=== PATIENT | male | born 1980 | race African-American/Black ===

== ENCOUNTER 2024-11-06 08:56 | Day surgery (SDC) | payer OTHER, SELFPAY ==
[2024-10-29 08:41] VITALS: BMI 31.1
[2024-11-06] VITALS (17 sets, daily range): BP systolic 130–167; BP diastolic 98–116; PULSE 88–133; RESP 10–20; TEMP 36–36.7; O2SAT 17–99; BMI 31.1
--- NOTE | 2024-11-06 | DI.RAD.S_ITS ---
PROCEDURE: [id number] W PEL IF PERFORMED INDICATIONS: TOTAL LEFT HIP ARTHROPLASTY TECHNIQUE: AP pelvis with lateral view(s) of the left hip(s). COMPARISON: [facility], CR, XR HIP W PEL IF DONE LT 2V, 11/06/2024, 14:39. [facility], CR, XR PELVIS WITH LATERAL HIP LEFT, 08/15/2024, 14:15. FINDINGS: Intraoperative left hip arthroplasty. Hardware appears intact with good anatomic alignment. IMPRESSION: Intraoperative left hip arthroplasty. Dictated by: Avril Avila M.D. on 11/06/2024 at 16:46 Approved by: Avril Avila M.D. on 11/06/2024 at 16:47
--- NOTE | 2024-11-06 06:00 | DI.RAD.S_ITS ---
PROCEDURE: XR HIP W PEL IF DONE LT 2V INDICATIONS: ROYA TECHNIQUE: AP pelvis and lateral view of the hip acquired. COMPARISON: [facility], CR, [id number] W PEL IF PERFORMED, 11/06/2024, 12:44. FINDINGS: Bones: Patient is status post left hip arthroplasty, with hardware components in expected positions. The hip joint appears congruent. The visualized bony structures appear intact. Soft tissues: Overlying postoperative changes are noted. No suspicious soft tissue densities. IMPRESSION: Expected post-operative appearance of a hip arthroplasty. Dictated by: Pete Cifuentes M.D. on 11/06/2024 at 20:23 Approved by: Pete Cifuentes M.D. on 11/06/2024 at 20:23
[2024-11-06] MEDS: LACTATED RINGERS 1,000 ML 42 ML IV ×3 (09:20→13:58)
[2024-11-06] MEDS: ACETAMINOPHEN 325 MG TABLET 975 MG PO (09:20)
[2024-11-06] MEDS: CELECOXIB 200 MG CAPSULE PO (09:21)
[2024-11-06] MEDS: VANCOMYCIN 1,000 MG/200 ML PIGGYBACK 200 MG IV (09:47)
--- NOTE | 2024-11-06 10:24 | PM.PREOP ---
Pre-operative Note Interval Note History & Physical reviewed/Exam performed by Physician: Yes Changes to H&P: No
--- NOTE | 2024-11-06 10:25 | P.OP_ITS ---
Operative Date/Time/Diagnoses Date of procedure: 11/06/24 Time of procedure: 11:10 Pre-op diagnosis: Left hip OA, AVN Post-op diagnosis: same Procedure & Clinicians Procedure: Left total hip arthroplasty anterior approach Same procedure as scheduled: Yes Indications: The patient has had progressively worsening left hip pain with radiographic changes consistent with arthritis. Non-operative management has failed and the patient has requested total hip replacement. The risks, benefits and alternatives to surgery were discussed with the patient prior to proceeding. Risks discussed included, but were not limited to, failure to relieve pain, leg length discrepancy, dislocation, stiffness, infection, nerve damage, deep venous thrombosis, pulmonary embolism, stroke, coma, heart attack, permanent paralysis and , as well as the potential need for eventual revision of the prosthetic. Surgeon: Maddy Scott Harbor Pilot: Kim Avila Anesthesia Type: General and Spinal Operative Notes Findings: Severe left hip OA, hard bone Closure Type: primary Specimen(s): none sent Prosthetic devices, grafts, tissues, transplants, or devices: Scott and nephew 56 R3, +4 liner, anthology a size 6 high offset, 36 by-3 Oxinium head,two 6.5 mm screws Estimated Blood Loss (mL): 250 Blood products transfused: none Procedure in detail: The patient was brought to the operating room. Patient was carefully positioned in the supine position. Time-out was performed and antibiotics were given. Anesthesia was induced. He was positioned in the on the table in order to allow hyperextension of the hip. The left lower extremity was prepped and draped in a standard sterile fashion. An anterior left hip incision was made 1 fingerbreadth lateral to the anterior superior iliac spine and extended distally towards the greater trochanter. Dissection was carried out through skin and subcutaneous tissue. Superficial hemostasis was achieved. The fascia over the tensor fascia artur was defined and incised with a knife. Two Allis clamps were used to grasp the fascia. Tensor fascia artur was retracted laterally. A gelpi retractor was placed. Dissection was carried out down along the neck. The circumflex vessels were carefully identified and cauterized with the Aqua Mantis. A PA was used during the procedure and was essential for intraoperative retraction and safe implantation of the components. There was good visualization of the femoral neck. A Cobra was placed superior to the neck and the gluteus fibers were carefully stripped from that superior aspect of the capsule. A 2nd retractor was placed along the inferior aspect of the neck. The rectus insertion along the capsule was partially released. A 3rd retractor that was then gently placed over the rim of the acetabulum under the rectus. Capsule was carefully incised and released from the intertrochanteric line circumferentially superior to the mid sagittal line and inferiorly to the mid sagittal line until the lesser trochanter was palpable. A tag stitch was placed both in the superior and inferior limb of the capsular insertion. Along the acetabulum capsule was also released up to the mid sagittal 12:00 position. A portion of the labrum was resected. A saw was used to perform an osteotomy at the level of the intertrochanteric line and the junction of the superior femoral neck leaving approximately 1 finger breath of residual inferior neck above the lesser trochanter. A 2nd cut was made along the femoral neck at the base of the head and a napkin ring of neck was removed. Corkscrew was placed in the femoral head and the head was removed without difficulty. Retractors were then repositioned around the acetabulum. Residual labrum was resected and additional osteophytes were removed. A reamer that was 4 mm below the templated size was placed by hand in the acetabulum and it was reamed to centralize the acetabulum. It was then reamed up to 2 under the templated size and fluoroscopy was brought in to confirm the position of the reaming and depth of reaming. I reamed 1 under the anticipated size. A trial cup was placed and noted that it was appropriately sized and fluoroscopy confirmed position and depth. The component was open and inserted without difficulty fluoroscopic imaging was used to confirm that the cup had been adequately seated and was well positioned. It was further stabilized with two screws. Lateralized +4 poly liner was placed. The cup was tested and noted to be stable. Attention was then directed to the femur. The femur was gently hyperextended additional capsular release was performed as needed in order to allow adequate visualization of the proximal femur with elevation of the femur. Patient was placed in a hyperextended slightly adducted position with maximum external rotation. Box osteotome was used to check for any residual neck as well as sclerotic bone along the trochanter. Derby pepper was placed in the femur. Additional broaching was performed. Canal finder was used to determine the alignment of the canal and position. Size 1 broach was placed. The canal was then appropriately broached up to the templated size as long as there was adequate stability of the broach and serial advancement of the broach without excessive impingement. Specific attention was directed at avoiding varus attempting to direct the distal aspect of the broach more anteriorly and avoiding excessive anteversion. Trial reduction showed acceptable range of motion, good stability, no posterior impingement, scientology of leg length and appropriate lateral shuck. I also hyperflexed the hip and checked that there was no impingement anteriorly and there was good stability with flexion, adduction and internal rotation. Marcaine and Exparel 266 mg were injected. The stem was placed without di fficulty. Repeat trial reduction and x-ray showed acceptable overall position, length, and no evidence of the femoral fracture. Final head was placed. Wound was meticulously irrigated with normal saline. The hip was reduced and additional Exparel and Marcaine were injected. The capsule was closed with interrupted nonabsorbable sutures. The fascia of the tensor was closed with interrupted and running Vicryl. No drain was placed. Any tensor fascia artur muscle that appeared to be contused or injured which was a minimal amount was carefully resected. Capsule around the tensor was injected with Exparel and Marcaine. The skin was closed with barbed stitches for the subcutaneous tissue and skin. We also used surgical glue. The wound was dressed sterilely. Brief Betadine soak was also used and was meticulously irrigated with normal saline. Patient was transferred to recovery room in satisfactory condition. Complications: none Post-operative Condition: stable Disposition: Acute Care Plan for aftercare: The patient will be maintained on a standard total hip replacement protocol with weight bearing as tolerated and anterior hip precautions. The patient will receive Aspirin and sequential compression devices for DVT prophylaxis. The patient will be discharged home when safe for the home environment.
[2024-11-06] MEDS: BUPIVACAINE 0.5% W/ EPI (PF) 30 ML VIAL 60 ML INJ (11:49)
[2024-11-06] MEDS: BUPIVACAINE LIPOSOME 266 MG/20 ML VIAL INJ (11:50)
--- NOTE | 2024-11-06 11:53 | SUR.OPER ---
HANA TABLE, LEFT ARM PLACED ACROSS CHEST ON FOAM PAD WITH GEL PAD PLACED ON TOP OF ARM, SECURED WITH TAPE
[2024-11-06] MEDS: CEFAZOLIN 2 GM/100 ML PREMIX 100 ML IV ×2 (12:02→20:16)
[2024-11-06] MEDS: TRANEXAMIC ACID 1,000 MG VIAL 1000 MG INJ (12:02)
[2024-11-06] MEDS: HYDROMORPHONE 1 MG INJ IV (14:53)
[2024-11-06] MEDS: hydrOXYzine 50 MG/ML INJ 25 MG IM (14:57)
[2024-11-06] MEDS: OXYCODONE IR 5 MG TABLET PO ×2 (15:06→16:43)
--- NOTE | 2024-11-06 15:14 | SUR.PHASEI ---
Report called to Gayle.
--- NOTE | 2024-11-06 15:19 | SUR.PHASEI ---
Patient transferred to the floor by Bryan, with belongings bag.
[2024-11-06] MEDS: LACTATED RINGERS 1,000 ML 100 ML IV (15:43)
--- NOTE | 2024-11-06 16:32 | PT.IIE ---
Current Diagnoses Unilateral primary osteoarthritis, left hip (11/06/24) Surgery Performed Operation Date: 11/06/24 10:45 Actual Procedures p Total Hip Arthroplasty/Anterior Approach(Left) - Maddy Scott MD Surgical History (Last Updated 10/29/24 @ 10:08 by Mary Flores RN) S/P cervical spinal fusion (02/2023) S/P thyroid biopsy (03/2023) Medical History (Last Updated 10/29/24 @ 10:24 by Mary Flores RN) History of COVID-19 (~2021) HTN (hypertension) RENAY (obstructive sleep apnea) Osteoarthritis Physical Therapy Inpatient Evaluation/Re-Eval M1 PT/OT-IP Prior Functional Status Start: 11/06/24 18:13 Freq: NEEDED Status: Active Protocol: Document 11/06/24 16:32 AB (Rec: 11/06/24 18:25 AB [id number]) Medical Review Prior Functional Status Medical History Reviewed Yes Communication able to make needs known Mobility and Gait pt stated that he was independent with alll mobilities and ambulation without AD Social History Household Members spouse,children Living Arrangements House Number of Floors (Floors) Two Floors Number of Stairs To Enter/Railing? 1 step to enter the house 2 flights of steps R rail + L ledge to get to bedroom level Home Environment Standard Height Toilet,Tub/ Shower Home Equipment Front Wheel Walker,Grab Bars In Shower Employment Status Active Duty M2 PT-IP Current Condition Start: 11/06/24 18:13 Freq: NEEDED Status: Active Protocol: Document 11/06/24 16:32 AB (Rec: 11/06/24 18:25 AB [id number]) Physical Therapy Current Condition Current Condition Evaluation Date 11/06/24 Treatment Diagnosis s/p L ROYA anterior; difficulty in walking Onset Date 11/06/24 M3 PT-IP Subjective Start: 11/06/24 18:13 Freq: NEEDED Status: Active Protocol: Document 11/06/24 16:32 AB (Rec: 11/06/24 18:25 AB [id number]) Subjective Physical Therapy Visit Type Type Initial Evaluation Visit Start Time 16:32 Visit Stop Time 18:00 Number of [employer] REPAIRER Visits 0 Physical Therapy Visit Comments Patient Comments agreeable to do PT Therapy Pain Assessment Pain When Pain Assessed At Rest Pain Present Pain Present Pain Reported Location left hip Intensity 5 Scale Used Numeric (0 - 10) Pain Behaviors Guarding Pain Management Techniques Apply Cold,Modification of Treatment,Re-positioning, Timing of Activity with Medications M4 PT-IP Mobility and Gait Start: 11/06/24 18:13 Freq: NEEDED Status: Active Protocol: Document 11/06/24 16:32 AB (Rec: 11/06/24 18:25 AB [id number]) PT-Bed Mobility Assessment Supine to Sit Supine to Sit Standby Assistance PT-Transfer Assessment Sit to and From Stand Sit to and from Stand Contact Guard Assistance,1 Person Assistance,Use of Upper Extremities Equipment Transfer Assistive Device Gait Belt,Front Wheeled Walker Orthotic/Prosthetic Devices or Brace: No Transfers Transfer Destination Chair Transfer Technique Stand Step Pivot Transfer Ability Level of Assist Contact Guard Assistance, Minimal Assistance,1 Person Assistance,2 Person Assistance Comments Mobility Comments pt supine in bed. spouse in room. obtained PLOF and home set up. BP checked: 155/117. nurse informed and provided pt with BP medication. post-op folder provided and educated pt regarding anterior L hip precautions. pt wanting to go home today. BP rechecked: 133/90. pt completed supine to sit SBA. able to sit on EOb SBA. completed sit to stand CGA tomin A and ambulated to the chair with inital min A and cues for steadiness and able to walk CGA after a few feet with just occasional min A. pt sat on the chair. BP rechecked: 138/101. caregiver training conducted. educated spouse on how to use belt and how to assist pt. spouse was able to put safety belt on pt . spouse assisted pt with sit to stand and ambulated in room using FWW CGA to min A. pt sat back on chair. pt stated that he wants to go home and agreed to do stairs. spouse assisted pt with sit to stand from chair CGA to min A and pt ambulated in the hallway ~ 75 ft using FWW with spouse assisting CGA to min A . stair climbing training. educated pt and spouse on how to do stairs. pt completed up/ down platform step using FWW CGA to min A and cues. initially with PT providing cues. pt repeated again and spouse was able to assist and cue pt. pt completed up/down steps using B rail CGA with spouse assisting. assisted pt back to his room. pt ambulated from w/c to chair using FWW CGA. positioned pt on the chair. call light and table placed within reach. pt and spouse without further concerns. Gait Assessment Gait Gait Assistance Required: Contact Guard Assist,Minimum Assistance Distance (Feet) 75 Able to Maintain Weight Bearing Status Yes During Gait Assistive Devices Assistive Device Gait Belt,Front Wheeled Walker Orthotic/Prosthetic Devices or Brace: No Gait Deviations General Gait Pattern Antalgic Factors Limiting Gait Function Factors Limiting Gait Function Decreased Activity Tolerance, Decreased Strength,Limited Range of Motion,Pain,Poor Balance,Poor Safety Awareness Stair Climbing Assessment Evaluation Level of Assist On Stairs Contact Guard Assistance, Minimal Assistance Devices Stair Climbing Assistive Devices Front Wheel Walker Technique/Endurance Stair Climbing Direction Ascend and Descend Stair Climbing Technique Step to Step PT-Balance Assessment Sitting Balance and Reactions Static Sitting Balance Ability Normal Dynamic Sitting Balance Ability Good Standing Balance and Reactions Static Standing Balance Ability Fair Dynamic Standing Balance Ability Fair Device Used FWW M5 PT-IP Objective Assessments Start: 11/06/24 18:13 Freq: NEEDED Status: Active Protocol: Document 11/06/24 16:32 AB (Rec: 11/06/24 18:25 AB [id number]) Orientation Orientation/Cognition Level of Alertness Alert Orientation Name,Place,Situation Language Function Ability No Deficits Noted Safety Awareness Decreased Safety Awareness Memory Description Short Term Impaired Gross Range of Motion Lower Extremity ROM Assessment Within Functional Limits Strength Lower Extremity Strength Assessment Left Impaired Hip 3-/5 Knee 4-/5 Coordination Assessment Gross Coordination Gross Coordination WNL Muscle Tone Muscle Tone WNL Yes M6 PT-IP Treatment Start: 11/06/24 18:13 Freq: NEEDED Status: Active Protocol: Document 11/06/24 16:32 AB (Rec: 11/06/24 18:25 AB [id number]) Physical Therapy Treatment Exercises Exercises Heel Slides Education Education Provided Precautions,Weight Bearing Status,Post-Op Packet,Safety M7 PT-IP Assessment and Plan Start: 11/06/24 18:13 Freq: NEEDED Status: Active Protocol: Document 11/06/24 16:32 AB (Rec: 11/06/24 18:25 AB [id number]) PT Summary Assessment and Plan Potential Rehabilitation Potential Fair Status of Condition at Evaluation Evolving Summary Impairments Pain,ROM,Strength,Balance, Coordination,Sensation,Tone, Cognition,Bed Mobility, Transfers,Gait,Activity Tolerance Assessment Summary pt is a 44 y/o M s/p L ROYA anterior approach POD 0. pt with L hip anterior precautions and is wBAT. pt requiring CGA to min A with mobilities using FWW. caregiver training conducted and spouse was able to assist pt. pt wants to go home tonight. Goals Bed Mobility Goal Independent Transfer Goal Independent,Front Wheeled Walker Gait Goal Independent,Front Wheel Walker Gait Distance 200 Other Goals up/down 1 step using FWW SBA up/down 2 flights of steps B rails SBA Days to Meet Goals 5 Frequency of Treatment Frequency Of Treatment Twice a Day Treatment Plan Physical Therapy Treatment Plan Bed Mobility Training,Transfer Training,Gait Training, Therapeutic Exercise,Balance Retraining,Post Op Education, Discharge Planning,Hot or Cold Pack,Neuromuscular Re-ed, Coordination Retraining,Manual Therapy Precautions Anterior Hip Precautions No Hip Extension,No Hip External Rotation Weight Bearing Status Weight Bearing Status Weight Bear as Tolerated Allowed Weight Bearing Amount (enter % LLE WBAT or #) (%) Recommendations To Nursing Amount of Assist Needed 1 Person Assist Discharge Recommendations PT Discharge Recommendations Home with Assistance, Outpatient PT Transportation Needs at Discharge Private Vehicle
[2024-11-06] MEDS: lisinopriL 20 MG TABLET PO (16:55)
[2024-11-06] MEDS: diazePAM 5 MG TABLET PO (18:45)
[2024-11-06] MEDS: ASPIRIN EC 81 MG TABLET PO (20:16)
[2024-11-06] MEDS: DOCUSATE 100 MG CAPSULE PO (20:16)
[2024-11-07] VITALS: BP 140/99; PULSE 115; RESP 18; TEMP 36.5; O2SAT 99
[2024-11-07] MEDS: CEFAZOLIN 2 GM/100 ML PREMIX 100 ML IV (04:12)
[2024-11-07] MEDS: IBUPROFEN 400 MG TABLET PO (04:20)
[2024-11-07] MEDS: diazePAM 5 MG TABLET PO (04:20)
[2024-11-07 04:50] VITALS: BP 136/99; PULSE 102; RESP 18; TEMP 36.3; O2SAT 99
[2024-11-07] MEDS: OXYCODONE IR 5 MG TABLET PO (05:08)
[2024-11-07 06:07] LABS: Hematocrit 37.1 % (41-53); Hemoglobin 12.5 g/dL (13.5-17.5)
--- NOTE | 2024-11-07 06:23 | P.DS_ITS ---
History of Present Illness History of Present Illness Date Patient Seen: 11/07/24 Time Patient Seen: 06:23 Chief complaint: Left ROYA Anterior Narrative: Operative Date/Time/Diagnoses Date of procedure: 11/06/24 Time of procedure: 11:10 Pre-op diagnosis: Left hip OA, AVN Post-op diagnosis: same Procedure & Clinicians Procedure: Left total hip arthroplasty anterior approach Same procedure as scheduled: Yes Indications: The patient has had progressively worsening left hip pain with radiographic changes consistent with arthritis. Non-operative management has failed and the patient has requested total hip replacement. The risks, benefits and alternatives to surgery were discussed with the patient prior to proceeding. Risks discussed included, but were not limited to, failure to relieve pain, leg length discrepancy, dislocation, stiffness, infection, nerve damage, deep venous thrombosis, pulmonary embolism, stroke, coma, heart attack, permanent paralysis and , as well as the potential need for eventual revision of the prosthetic. Surgeon: Maddy Scott Sustainability Specialist: Kim Avila Anesthesia Type: General and Spinal Operative Notes Findings: Severe left hip OA, hard bone Closure Type: primary Specimen(s): none sent Prosthetic devices, grafts, tissues, transplants, or devices: Scott and nephew 56 R3, +4 liner, anthology a size 6 high offset, 36 by-3 Oxinium head,two 6.5 mm screws Estimated Blood Loss (mL): 250 Blood products transfused: none Discharge Providers Provider Discharge Date: 11/07/24 Primary care physician: PENNY Villa Consults: 11/06/24 06:00 Consult to Anesthesiology Routine Comment: Consulting Provider: Anesthesiologist Reason for consultation: Regional block for post operative pain control Has provider been notified: No 11/06/24 15:20 Consult to Discharge Planning Routine Comment: Consult to Occupational Therapy Evaluate & Treat Comment: Physician Instructions: Evaluate and treat Consult to Physical Therapy Evaluate & Treat Comment: Physician Instructions: post op ROYA protocol Discharge provider: Sheyla Florez PA-C Summary Hospital Course Discharge Diagnosis: Left hip osteoarthritis, avascular necrosis; s/p left total hip arthroplasty Hospital Course: Mr Nolasco's hospital course was unremarkable. On the morning of POD# 1, he was feeling well and wanted to go home. He was eating and voiding without difficulty and his pain was well-controlled with oral medication. He was evaluated by PT following surgery and they felt he was appropriate for discharge; he would like to work with them again prior to discharge. Exam Vital Signs (past 8 hours): - 11/07/24 00:00 11/07/24 04:50 Temperature 97.7 F 97.4 F L Pulse Rate 115 H 102 H Respiratory Rate 18 18 Blood Pressure 140/99 H 136/99 H Pulse Oximetry 99 99 Oxygen Delivery Method Room Air Oxygen Flow Rate 0 Narrative Exam Narrative: 5/5 strength in hip flexors, quadriceps, hamstrings, PF, DF, EHL on left. Sensation to light touch intact throughout LLE. Calf soft and compressible. Aquacel dressing CDI. ID > 100, but in review of office notes, this is baseline for him. Objective Labs 11/07/24 05:33 Labs: Laboratory Results - last 24 hr 11/07/24 05:33 Hgb 12.5 L Hct 37.1 L PFSH Medical History (Updated 10/29/24 @ 10:24 by Mary Flores RN) History of COVID-19 (~2021) Osteoarthritis HTN (hypertension) RENAY (obstructive sleep apnea) Surgical History (Updated 10/29/24 @ 10:08 by Mary Flores RN) S/P thyroid biopsy (03/2023) S/P cervical spinal fusion (02/2023) Social History household members: spouse and children Smoking Status: Current every day smoker alcohol intake: current Discharge Assessment & Plan Assessment and Plan Assessment: Left hip osteoarthritis, avascular necrosis; s/p left total hip arthroplasty Plan of Treatment: Discharge home after morning PT. Pt has postop meds at home. F/u in office as scheduled, outpt PT. Discharge Plan Discharge Plan Patient Disposition: Home Discharge orders & Medications Discharge Orders: Discharge (Order); Ordered 11/07/24 Ordered By: Sheyla Florez Prescriptions: Continued lisinopril 20 mg Tablet 20 mg PO QAM sildenafil 100 mg tablet 100 mg PO diazepam 5 mg tablet 5 mg PO BID PRN (Reason: Anxiety) Follow up/Referrals: Shamar Rosado ARNP [Primary Care Provider] - Maddy Scott MD [Physician] - 11/16/24 11:30 am (Follow up w/ Neymar Nunes PA-C, at [address] office in [place].) Diet/Activity/Treatments Diet: Diet as Tolerated Activity: Weightbearing as tolerated. Anterior hip precautions. Cold/Heat Therapy: Ice to hip as needed for pain. Skin/Wound/Dressing Care Report to your healthcare provider any signs of infection, such as:: chills, fever, night sweats, unusual drainage and unusual redness Dressing: May shower. Leave dressing in place until follow up in office. No bathing or otherwise soaking incision. Call the office if the dressing becomes saturated inside. Visit Report/Discharge Packet Instructions: DI for Hip Replacement, DI for Prescription Opioid Use Stand Alone Forms: Patient Portal/API, Surgery Discharge Discharge Data Primary Care Provider: Shamar Rosado Attending Provider: Maddy Scott VTE Deep Vein Thrombosis/Pulmonary Embolism Present on Admission: No
[2024-11-07] MEDS: ACETAMINOPHEN 325 MG TABLET 650 MG PO (07:47)
[2024-11-07 08:00] VITALS: BP 130/85; PULSE 86; RESP 16; TEMP 36.3; O2SAT 99
--- NOTE | 2024-11-07 08:03 | PT.IPTN ---
Current Diagnoses Unilateral primary osteoarthritis, left hip (11/06/24) Surgery Performed Operation Date: 11/06/24 10:45 Actual Procedures p Total Hip Arthroplasty/Anterior Approach(Left) - Maddy Scott MD Physical Therapy Treatment Note M2 PT-IP Current Condition Start: 11/06/24 18:13 Freq: NEEDED Status: Active Protocol: Document 11/07/24 07:42 SP (Rec: 11/07/24 08:21 SP [id number]) Physical Therapy Current Condition Current Condition Evaluation Date 11/06/24 Treatment Diagnosis s/p L ROYA anterior; difficulty in walking Onset Date 11/06/24 M3 PT-IP Subjective Start: 11/06/24 18:13 Freq: NEEDED Status: Active Protocol: Document 11/07/24 07:42 SP (Rec: 11/07/24 08:21 SP [id number]) Subjective Physical Therapy Visit Type Type Treatment Note Visit Start Time 07:42 Visit Stop Time 08:03 Number of INSTRUMENT INSTALLER Visits 1 Physical Therapy Visit Comments Patient Comments agreeable to do PT Patient Goals return home with and set up with outpt PT in [facility] Pain Assessment Location left hip Intensity 3 Scale Used Numeric (0 - 10) Pain Management Techniques Apply Cold,Modification of Treatment,Re-positioning, Timing of Activity with Medications M4 PT-IP Mobility and Gait Start: 11/06/24 18:13 Freq: NEEDED Status: Active Protocol: Document 11/07/24 07:42 SP (Rec: 11/07/24 08:21 SP [id number]) PT-Bed Mobility Assessment Supine to Sit Supine to Sit Independent Scooting Scooting to Edge of Bed Independent PT-Transfer Assessment Sit to and From Stand Sit to and from Stand Standby Assistance,Use of Upper Extremities Equipment Transfer Assistive Device Gait Belt,Front Wheeled Walker Orthotic/Prosthetic Devices or Brace: No Transfers Transfer Destination Chair Transfer Technique Pt ambulated /c FWW Transfer Ability Level of Assist Standby Assistance,Use of Upper Extremities Comments Mobility Comments INSTRUMENT INSTALLER instructed pt with post op ex 5 reps each, showed with pt demonstrated use gait belt looped on L foot for heel slide support cued not >90deg hip flexion. Completed HOB flat sup>sit and scoot to EOB use gait belt support on LLE, SBA/Mod I. STS SBA /c FWW. Gait to hallway stairs and back approx 160 ft cues for not large step with RLE leaving left behind. Completed 3 sets 4 stair mgt BHR mgt sBA, cues for L knee bend ascending normal phase. Cues for L knee flexion during swing phase for normalizing gait. Pt demonstrates not significant BUE WB on FWW needed. Pt was sup in chair with all needs in reach including call light. Gait Assessment Gait Gait Assistance Required: Standby Assistance Distance (Feet) 150 Able to Maintain Weight Bearing Status Yes During Gait Assistive Devices Assistive Device Gait Belt,Front Wheeled Walker Orthotic/Prosthetic Devices or Brace: No Gait Deviations General Gait Pattern Antalgic Factors Limiting Gait Function Factors Limiting Gait Function Decreased Activity Tolerance, Decreased Strength,Limited Range of Motion,Pain Comments Gait Comments see mobility comments Stair Climbing Assessment Evaluation Level of Assist On Stairs Standby Assistance Devices Stair Climbing Assistive Devices Left Railing,Right Railing Technique/Endurance Stair Climbing Direction Ascend and Descend Stair Climbing Technique Step to Step Number of Steps Climbed 3 Stair Climbing Set # Repetitions (reps) 3 Comments Stair Climbing Comments Good proper sequencing post 1 verbal review. Cued L knee flexion ascending and reduction hip hike. PT-Balance Assessment Sitting Balance and Reactions Static Sitting Balance Ability Normal Dynamic Sitting Balance Ability Normal Standing Balance and Reactions Static Standing Balance Ability Good Dynamic Standing Balance Ability Good Device Used FWW M5 PT-IP Objective Assessments Start: 11/06/24 18:13 Freq: NEEDED Status: Active Protocol: Document 11/06/24 16:32 AB (Rec: 11/06/24 18:25 AB [id number]) Orientation Orientation/Cognition Level of Alertness Alert Orientation Name,Place,Situation Language Function Ability No Deficits Noted Safety Awareness Decreased Safety Awareness Memory Description Short Term Impaired Gross Range of Motion Lower Extremity ROM Assessment Within Functional Limits Strength Lower Extremity Strength Assessment Left Impaired Hip 3-/5 Knee 4-/5 Coordination Assessment Gross Coordination Gross Coordination WNL Muscle Tone Muscle Tone WNL Yes M6 PT-IP Treatment Start: 11/06/24 18:13 Freq: NEEDED Status: Active Protocol: Document 11/07/24 07:42 SP (Rec: 11/07/24 08:21 SP [id number]) Physical Therapy Treatment Exercises Exercises Ankle Pumps,Gluteal Sets,Quad Sets,Heel Slides Education Education Provided Precautions,Weight Bearing Status,Post-Op Packet,Safety M7 PT-IP Assessment and Plan Start: 11/06/24 18:13 Freq: NEEDED Status: Active Protocol: Document 11/07/24 07:42 SP (Rec: 11/07/24 08:21 SP [id number]) PT Summary Assessment and Plan Potential Rehabilitation Potential Fair Status of Condition at Evaluation Evolving Summary Impairments Pain,ROM,Strength,Balance, Coordination,Sensation,Tone, Cognition,Bed Mobility, Transfers,Gait,Activity Tolerance Progress Towards Goals Progressing Toward Goals,Slow Progress due to Pain Assessment Summary Pt Mod I with gait belt support LLE bed mob, sBA /c FWW rest of standing mobility aprpox 150 ft in hallway, 9 stairs B HR step to patterning . Pt ok to return home with when medically cleared and already set up with outpt PT. Goals Bed Mobility Goal Independent Transfer Goal Independent,Front Wheeled Walker Gait Goal Independent,Front Wheel Walker Gait Distance 200 Other Goals up/down 1 step using FWW SBA up/down 2 flights of steps B rails SBA Days to Meet Goals 5 Frequency of Treatment Frequency Of Treatment Twice a Day Treatment Plan Physical Therapy Treatment Plan Bed Mobility Training,Transfer Training,Gait Training, Therapeutic Exercise,Balance Retraining,Post Op Education, Discharge Planning,Hot or Cold Pack,Neuromuscular Re-ed, Coordination Retraining,Manual Therapy Other Recommendations and Next Treatment Further distance gait LRAD Focus when ready. Post op ex. Precautions Anterior Hip Precautions No Hip Extension,No Hip External Rotation Weight Bearing Status Weight Bearing Status Weight Bear as Tolerated Allowed Weight Bearing Amount (enter % LLE WBAT or #) (%) Recommendations To Nursing Amount of Assist Needed Standby Assistance Discharge Recommendations PT Discharge Recommendations Home with Assistance, Outpatient PT Transportation Needs at Discharge Private Vehicle
[2024-11-07 08:40] VITALS: BP 130/85
[2024-11-07] MEDS: ASPIRIN EC 81 MG TABLET PO (08:40)
[2024-11-07] MEDS: DOCUSATE 100 MG CAPSULE PO (08:40)
[2024-11-07] MEDS: lisinopriL 20 MG TABLET PO (08:40)
--- NOTE | 2024-11-07 09:20 | OT.IP.EVAL ---
Current Diagnoses Unilateral primary osteoarthritis, left hip (11/06/24) Surgery Performed Operation Date: 11/06/24 10:45 Actual Procedures p Total Hip Arthroplasty/Anterior Approach(Left) - Maddy Scott MD Past Medical History (Last Updated 10/29/24 @ 10:24 by Mary Flores, RN) History of COVID-19 (~2021) HTN (hypertension) RENAY (obstructive sleep apnea) Osteoarthritis Surgical History (Last Updated 10/29/24 @ 10:08 by Mary Flores RN) S/P cervical spinal fusion (02/2023) S/P thyroid biopsy (03/2023) Occupational Therapy Inpatient Evaluation/Re-Eval M1 PT/OT-IP Prior Functional Status Start: 11/06/24 18:13 Freq: NEEDED Status: Active Protocol: Document 11/07/24 09:11 [facility] (Rec: 11/07/24 09:21 [facility] [id number]) Medical Review Prior Functional Status Medical History Reviewed Yes Communication able to make needs known Mobility and Gait pt stated that he was independent with all mobilities and ambulation without AD Activities of Daily Living and IADL's Had to sit for dressing needs and had pain for needs. Social History Household Members spouse,children Living Arrangements House Number of Floors (Floors) Two Floors Number of Stairs To Enter/Railing? 1 step to enter the house 2 flights of steps R rail + L ledge to get to bedroom level Home Environment Standard Height Toilet,Tub/ Shower Home Equipment Front Wheel Walker,Grab Bars In Shower Employment Status Active Duty M2 OT-IP Current Condition Start: 11/07/24 09:10 Freq: Status: Active Protocol: Document 11/07/24 09:11 [facility] (Rec: 11/07/24 09:21 [facility] [id number]) Occupational Therapy Current Condition Current Condition Evaluation Date 11/07/24 Treatment Diagnosis S/P L ROYA Anterior Diagnosis Onset Date 11/06/24 M3 OT- IP Subjective and Pain Start: 11/07/24 09:10 Freq: Status: Active Protocol: Document 11/07/24 09:11 [facility] (Rec: 11/07/24 09:21 [facility] [id number]) OT- Subjective Occupational Therapy Visit Type Type Initial Evaluation Visit Start Time 08:35 Visit Stop Time 09:10 Occupational Therapy Visit Comments Patient Comments Pt agreed to get up and get dressed. Patient/Caregiver Goals TO go home. OT Pain Assessment Pain When Pain Assessed At Rest Pain Present Pain Present Pain Reported Location left hip Intensity 4 Scale Used Numeric (0 - 10) M4 OT- IP ADL's Start: 11/07/24 09:10 Freq: Status: Active Protocol: Document 11/07/24 09:11 [facility] (Rec: 11/07/24 09:21 [facility] [id number]) OT [id number] General Evaluation Self-Feeding Ability Independent OT ADL-Grooming General Evaluation Grooming Ability Independent OT ADL-Oral Care General Eval Oral Care Ability Independent OT ADL-Dressing General Eval Upper Body Dressing Ability Minimal Assistance Lower Body Dressing Ability Minimal Assistance Comments OT Dressing Comments Assist to help thread sleeve over the IV, assist to help get pants over RLE. Encouraged pt to sit to get dressed as pt tends to want to stand at this time. Pt states to get LB dressing equipment. Able to practice use of LB dressing equipment. OT ADL-Toileting Comments OT Toileting Comments Talked about use of FWW over the toilet when standing to urinate. OT ADL-Bathing Comments OT Bathing Comments Educated of bandage care while showering and may be beneficial to get a HHSP and shower chair and assist from his . M5 OT- IP IADL's Start: 11/07/24 09:10 Freq: Status: Active Protocol: Document 11/07/24 09:11 [facility] (Rec: 11/07/24 09:21 [facility] [id number]) OT-Instrumental Activities of Daily Living Home Safety Awareness Awareness of Need for Assistance at Home Good Awareness Ability to Problem Solve Emergency Able to Problem Solve Situations Medication Management Medication Management No Deficits Identified Money Management Money Management No Deficits Identified Meal Preparation Meal Preparation Caregiver Provides Assist Clinical Resource Director Clinical Resource Director Caregiver Provides Assist Driving Driving Comments Pt aware not to drive at this time. M6 OT- IP Functional Cognition Start: 11/07/24 09:10 Freq: Status: Active Protocol: Document 11/07/24 09:11 [facility] (Rec: 11/07/24 09:21 [facility] [id number]) Cognitive Factors Limiting Selfcare Function Cognitive Ability Level of Alertness Alert Patient Orientation Name,Age,Birthday,Month,Date, Year,Day of Week,Place, Situation Attention Span Ability Capable of Focused Attention, Capable of Sustained Attention Ability to Follow Commands Able to Follow Multi-Step Commands Safety Awareness Underestimates Need for Assistance Cognitive Comments Cognitive Assessment Comments Pt needing safety cues to sit to get dressed. Pt admits that he is stubborn. Otherwise if insistent to stand and get dressed to lean against a wall or have his present for safety. OT- Vision and Hearing OT- Hearing Assessment OT- Hearing Assessment WFL OT- Vision Assessment Visual Acuity Glasses All The Time Visual Attentiveness WFL Occular Pursuits WFL M7 OT- IP Mobility and Balance Start: 11/07/24 09:10 Freq: Status: Active Protocol: Document 11/07/24 09:11 [facility] (Rec: 11/07/24 09:21 [facility] [id number]) OT-Transfer Assessment Sit to and From Stand Sit to and from Stand Standby Assistance Transfers Transfer Ability Standby Assistance Technique Transfer Destination Chair Devices Transfer Assistive Devices Gait Belt,Front Wheeled Walker Comments Mobility Comments Pt heavy use of his hands on surfaces to come to stand. Able to talk about how to get into a truck which has a step. OT- Balance Assessment Sitting Balance and Reactions Static Sitting Balance Ability Normal Dynamic Sitting Balance Ability Normal Standing Balance and Reactions Static Standing Balance Ability Good Dynamic Standing Balance Ability Good M8 OT- IP Objective Assessments Start: 11/07/24 09:10 Freq: Status: Active Protocol: Document 11/07/24 09:11 [facility] (Rec: 11/07/24 09:21 [facility] [id number]) OT Gross Range of Motion Upper Extremity Range of Motion Assessment Within Functional Limits OT Strength Upper Extremity Strength Assessment Within Functional Limits M9 OT- IP Assessment and Plan Start: 11/07/24 09:10 Freq: Status: Active Protocol: Document 11/07/24 09:11 [facility] (Rec: 11/07/24 09:21 [facility] [id number]) OT Summary Assessment and Plan Potential Rehabilitation Potential Excellent Analytic Complexity at Evaluation Low Summary OT Impairments Pain,Functional Mobility, Dressing,Bathing Progress Towards Goals Progressing Toward Goals Assessment Summary Pt low complexity and main barriers are pain, steps, and needing safety cues to sit from dressing needs. Pt to go home with family to assist and have outpt PT. Goals Dressing Goal Independent,Windrower Operator,Sock Aid Toileting Goal Independent Bathing Goal Standby Assistance Toilet Transfer Goal Independent Shower Transfer Goal Independent Days to Meet Goals 1 Frequency of Treatment Frequency Of Treatment Once a Day Treatment Plan OT Treatment Plan ADL Training,Functional Mobility,Patient/Family Education,Discharge Planning Discharge Recommendations OT Discharge Recommendations Home with Assistance, Outpatient PT Home Equipment Needs HHSP, shower chair, LB dressing equipment Transportation Needs at Discharge Private Vehicle
--- NOTE | 2024-11-07 10:01 | PC.NURSE ---
D/c instructions reviewed with pt. Discussed ways to prevent constipation while taking narcotics, and not to drive while taking them. IV removed. Pt confirmed he had all belongings. Pt exited via w/c with ANIMAL HUMANE AGENT SUPERVISOR and spouse to private vehicle.
--- NOTE | 2024-11-07 11:42 | CM.DANOTE ---
Initial DCP Assessment Visit Note Reviewed EMR and team rounds for patient's medical status and updates. I was unable to meet with patient in person before he left the hospital. Patient resides at home and is fully independent at baseline. Patient's spouse will help him with transportation and ADLs as needed during his recovery. Payor: Nick Christina PCP: Shamar Rosado Patient is a 44 year old M who came in to day surgery for planned left total hip arthroscopy. Prior to surgery patient struggled with significant, progressivly worsening pain in his hip. He had imaging that showed arthritis of the hip. He tried non operative pain managment and therapies and all failed. Surgery was completed on 11/06/24 without complication. Patient was able to do all physical therapy mobilities and ambulation independently without assistive device. Patient has a front wheeled walker and gait belt for spouse to help with ADLs during recovery. PT also recommended grab bars in shower. Patient was transported today home by his spouse. Plan is for patient to continue outpatient physical therapy. Discharge Planning/Care Management CM Discharge Assessment Start: 11/07/24 10:32 Freq: Status: Active Protocol: Document 11/07/24 10:33 [facility] (Rec: 11/07/24 11:39 [facility] [id number]) Discharge Planning Assessment Assigned Hunting Guide Nacho Adams RN Advance Directives? No Advance Directives on File No History Provided By Patient,Medical Record Expected Length of Stay 1 Has Patient been admitted in last 30 No days? Prior Living Arrangements House Household Members spouse,children Type of transporation used prior to Drives own vehicle admit Comment Spouse will help with transportation during recovery . Independent with ADL's Yes Is patient alert and oriented? Yes Comment Patient able to do all mobilities and ambulation independently without assistive device. Physical therapy recommends front wheeled walker and grab bars in shower during recovery. Also a gait belt for spouse to use with stand by assist for ADLs as needed. Caregiver for Another No DME Already Rented / Owned FWW / Walker,Other Comment PT also recommended gait belt and grab bars in shower. Patient/Family Preference OP PT Therapy Barriers to Discharge No Discharge Plan Home Community Services Physical Therapy Transportation Arrangement Spouse will provide transportation during recovery . Referrals Initiated None needed Comment Patient was SDC OR status starting 11/06 at 15:20. Medicare Choice List Provided No Has Agency SNF been contacted No Whiteboard Updated in Patient Room with No name and ext. # of Hunting Guide Comment Unable to do this before patient discharged. Review Status In Process Please Provide Date Initial DC 11/07/24 Assessment Was Performed Pre-Anesthesia Assessment Start: 10/29/24 08:41 Freq: Status: Discharge Protocol: Document 10/29/24 08:41 [facility] (Rec: 10/29/24 09:02 [facility] [id number]) Pre-Anesthesia Assessment PAC Comment Phone assess 10/29/24 Preferred Name [facility] Patient Information Reviewed Via Phone Assessment Assessment Completed With Patient Diagnostic Results BMP/CMP,CBC,EKG Comment Outside labs/EKG scanned Primary Care Provider Shamar Rosado Seen Specialist in Last 12 Months Yes Specialist Seen Orthopedist Primary Language [employer] Department Supervisor Required No Height 185.42 cm Weight 107.048 kg Body Mass Index (BMI) 31.1 Hearing Ability Normal Visual Assist Glasses Dentition Type Teeth, Natural Present,Teeth, Missing Barriers to Learning None Comment Wearing upper/lower braces Hx Anesthesia Reactions No: RENAY-unable to tolerate CPAP Hx Family Anesthesia Reaction No Hx Malignant Hyperthermia No Hx Blood Transfusions No Anesthesia Review Requested No Route Delivery Manager No alcohol intake current alcohol intake frequency 3 or more drinks per day Smoking Status Current every day smoker Tobacco type e-cigarettes Substance Use Type [#R] does not use Pain Present Pain Reported Musculoskeletal Symptoms Abnormal Gait,Difficulty Walking,Joint Pain History of Falling (Recent or History of Yes ) Patient is completely paralyzed or No completely immobile Mental Status Oriented to own ability Is patient on oxygen? No Does patient have FRANK/SOB No Hx Sleep Apnea Yes CPAP/BIPAP use prescribed not used Currently Taking a Beta Adriana No Can You Climb a Flight of Stairs Without Yes SOB Hx Chest Pain No Hx SOB No Hx Syncope or Dizziness No Anti-Coagulant Therapy No Has a Streetcar Motorman No Cardiac Testing No Hx Pacemaker/ICD No Pacemaker Rep Required? No Cardiac Clearance Received No Diet Type At Home Regular Dysphagia No Gastrointestinal Symptoms None Chronic UTI No Urinary Catheter Present No Hx Urinary Self Catheterization No Diabetes No HgbA1C 5.4 Date 10/15/24 Comment 5.4% 10/15/24 Hx Drug Resistant Organism No Presence of External or Internal Medical Yes: Cervical fusion plate Devices Comment No covid symptoms x 8 weeks Marital Status Lives With spouse,children Current Living Arrangements House Number of Floors (Floors) Two Floors Number of Stairs To Enter/Railing? 1 Support System Spouse Does the Patient Have Assistance After Yes Surgery Patient Discharge Plan Description Return Home Comment Pt advised possible overnight length of stay per surgeon Feels Safe in Current Environment Yes Been Physically Hurt or Threatened By a No Person in Current Environment Do you have thoughts of harming yourself None or others? Are you currently considering suicide? No Do you have a plan to hurt yourself or No Plan others? Do You Have Any Spiritual Beliefs That No May Affect Your HC Choices? Do You Have Any Cultural Practices That No May Affect Your HC Choices? Comment Martin Who Can We Speak to About Patient's Care Family, friends Identifying Code for Release of Patient Declines to issue Information Health Care Proxy/Next of Kin Munira () Health Care Proxy Emergency Contact Name Rebecca (Mom) Emergency Contact Advance Directives? No Power of Veneer Drier No PAC Instructions Assistance for 24 hours post- op,Durable medical equipment, Medications to take/avoid, Nasal antibiotic,No ETOH/ petroleum product on skin DOS, NPO,Post-op transportation,Pre -surgical wash,Sturdy shoes/ comfortable clothes,Do not bring valuables and remove jewelry
== END 2024-11-07 10:03 | disposition home or self-care (01) ==
LOC: OR 08:58 → AC 14:14
PROVIDERS: PCP Nurse Practitioner Family; Referring Provider Nurse Practitioner Family; Visit Provider Orthopaedic Surgery
PROC: (CPT 27130; principal; 2024-11-06 10:45)
DX: M16.12 Unilateral primary osteoarthritis, left hip (principal); M87.9 Osteonecrosis, unspecified; I10 Essential (primary) hypertension; G47.33 Obstructive sleep apnea (adult) (pediatric); F17.290 Nicotine dependence, other tobacco product, uncomplicated; Z98.1 Arthrodesis status
CPT/HCPCS: 27130; 36415; 73502; 73503; 76000; 85014; 85018; 97116; 97162; 97165; 97530; 97535; C1776; C1713; J0666; J0690; J1171; J2250; J2704; J3010; J3410